=== PATIENT | male | born 1995 | race Caucasian/White ===

== ENCOUNTER 2019-09-24 08:47 | Emergency (ER) | payer OTHER ==
[~2019-09-24] VITALS: Ht 182.9 cm; Wt 84.1 kg
[2019-09-24] MEDS ORDERED: NS 1,000 ML IV ONE (09:15)
[2019-09-24] MEDS ORDERED: KETOROLAC 30 MG/ML VIAL (J1885) IV ONE (09:15)
[2019-09-24] MEDS ORDERED: ACETAMINOPHEN 325 MG TAB PO ONE (09:15)
[2019-09-24] MEDS ORDERED: METOCLOPRAMIDE INJ 10MG/2ML VIAL (J2765) IV ONE (09:15)
[2019-09-24] MEDS ORDERED: NORT25CA2 PO (09:25)
[2019-09-24] MEDS ORDERED: predniSONE 20 MG TAB PO ONE (10:45)
[2019-09-24] MEDS ORDERED: ONDA4TAB6 PO (10:47)
[2019-09-24] MEDS ORDERED: PRED10TA2 PO (10:47)
[2019-09-24 11:01] VITALS: BP 125/68
== END 2019-09-24 11:03 | disposition home or self-care (01) ==
LOC: M ED 08:47
DX: G44.309 Post-traumatic headache, unspecified, not intractable (principal); Z79.899 Other long term (current) drug therapy
CPT/HCPCS: 96374; 96375; 99284; J1885; J2765

== ENCOUNTER 2019-12-26 00:19 | Emergency (ER) | payer OTHER ==
[~2019-12-26] VITALS: Ht 182.9 cm; Wt 86.4 kg
[~2019-12-26 00:19] MED LIST: NORT25CA2 PO; ONDA4TAB6 PO; PRED10TA2 PO
[2019-12-26] MEDS ORDERED: NS 1,000 ML IV ONE (02:15)
[2019-12-26 03:51] VITALS: BP 122/64
--- NOTE | 2019-12-27 06:46 | ECGEPIP ---
[facility] - ED Test Date: 2019-12-26 Pat Name: FERNANDEZ HATCH Department: Room: - Gender: Male [employer]visor: sb : [id number] Requested By: FLIP LEIGH Order Number: [id number] Reading MD: Santosh Gutiérrez Measurements Intervals Thayer Rate: 74 P: 72 WY: 182 QRS: -15 QRSD: 105 T: 30 QT: 391 QTc: 435 Interpretive Statements SINUS RHYTHM MODERATE VOLTAGE CRITERIA FOR LVH, CONSIDER NORMAL VARIANT BENIGN EARLY REPOLARIZATION MODERATE INTRAVENTRICULAR CONDUCTION DELAY NO PRIORS FOR COMPARISON Electronically Signed on 12-27-2019 6:46:07 EST by Santosh Gutiérrez
== END 2019-12-26 03:52 | disposition home or self-care (01) ==
LOC: M ED 00:19
DX: E86.0 Dehydration (principal); Z79.899 Other long term (current) drug therapy

== ENCOUNTER 2020-08-04 03:39 | Emergency (ER) | payer OTHER ==
[~2020-08-04] VITALS: Ht 182.9 cm; Wt 95.5 kg
[2020-08-04] MEDS ORDERED: TOPI200T7 PO (03:43)
[2020-08-04] MEDS ORDERED: KETOROLAC 30 MG/ML 1ML VIAL IV ONE (04:30)
[2020-08-04] MEDS ORDERED: METOCLOPRAMIDE INJ 10MG/2ML VIAL (J2765 PER 1) IV ONE (04:30)
[2020-08-04] MEDS ORDERED: NS 1,000 ML IV ONE (04:30)
[2020-08-04 05:06] VITALS: BP 135/71
== END 2020-08-04 06:21 | disposition home or self-care (01) ==
LOC: M ED 03:39
DX: G43.909 Migraine, unspecified, not intractable, without status migrainosus (principal); Z87.820 Personal history of traumatic brain injury; M54.2 Cervicalgia; G89.29 Other chronic pain; F17.290 Nicotine dependence, other tobacco product, uncomplicated
CPT/HCPCS: 96361; 96374; 96375; 99283; J1885; J2765